=== PATIENT | male | born 1980 | race Caucasian/White ===

== ENCOUNTER 2019-02-09 09:03 | Inpatient (IN) | payer MEDICARE, MEDICAID ==
[~2019-02-09] VITALS: Ht 170.2 cm; Wt 69.2 kg
[2019-02-09] MEDS ORDERED: LORazepam 2 MG TABLET PO PRN (11:45)
[2019-02-09] MEDS ORDERED: HALOPERIDOL 5 MG TABLET PO PRN (11:45)
[2019-02-09] MEDS ORDERED: ZOLPIDEM TARTRATE 10 MG TABLET PO PRN (11:45)
[2019-02-09 12:14] VITALS: BP 126/70
[2019-02-09 13:06] VITALS: BP 102/65
[2019-02-09] MEDS ORDERED: OLAN10TA3 PO (13:14)
[2019-02-09 16:00] VITALS: BP 109/66
[2019-02-09] MEDS ORDERED: MAG HYDROX/AL HYDROX/SIMETH ES 30 ML SUSPENSION UDCUP PO PRN (16:00)
[2019-02-09] MEDS ORDERED: ACETAMINOPHEN 325 MG TABLET PO PRN (16:00)
[2019-02-09] MEDS ORDERED: LOPERAMIDE HCL 2 MG CAPSULE PO PRN (16:00)
[2019-02-09] MEDS ORDERED: ALBUTEROL SULFATE HFA 90 MCG/PUFF 8 GM INHALER IH PRN (16:00)
[2019-02-09] MEDS ORDERED: DOCUSATE SODIUM 100 MG CAPSULE PO PRN (16:00)
[2019-02-09] MEDS ORDERED: ONDANSETRON HCL 4 MG TABLET PO PRN (16:00)
[2019-02-09] MEDS ORDERED: NICOTINE 14 MG/24 HOUR PATCH TD PRN (16:00)
[2019-02-09] MEDS ORDERED: IBUPROFEN 400 MG TABLET PO PRN (16:00)
[2019-02-09] MEDS ORDERED: MAGNESIUM HYDROXIDE SUSPENSION 30 ML UDCUP PO PRN (16:00)
[2019-02-09] MEDS ORDERED: GuaiFENesin/D-METHORPHAN [SUGAR-FREE] 200-20MG/10 ML SYRUP UDCUP PO PRN (16:00)
[2019-02-09] MEDS ORDERED: CloNIDine HCL 0.1 MG TABLET PO PRN (16:00)
[2019-02-09] MEDS ORDERED: PETROLATUM,WHITE 28 GM JELLY TP PRN (16:00)
[2019-02-09] MEDS: BACITRACIN 28.4 GM OINTMENT TP SCH (17:00)
[2019-02-10 06:35] VITALS: BP 106/62
[2019-02-10 08:11] LABS: BASOPHILS % (AUTO) 2.2 % (0.0-2.0); EOSINOPHILS % (AUTO) 7.6 % (1.0-6.0); HEMATOCRIT 43.5 % (41-53); HEMOGLOBIN 14.6 g/dL (13.5-17.5); LYMPHOCYTES # (AUTO) 1.6 K/uL (1.0-4.8); LYMPHOCYTES % (AUTO) 31.4 % (22.0-44.0); MEAN CORPUSCULAR HEMOGLOBIN 31.5 pg (26.0-34.0); MEAN CORPUSCULAR HGB CONC 33.6 G/dL (31.0-37.0); MEAN CORPUSCULAR VOLUME 94 fL (80-100); MONOCYTES # (AUTO) 0.3 K/uL (0.1-1.0); MONOCYTES % (AUTO) 6.2 % (2.0-9.0); NEUTROPHILS # (AUTO) 2.6 K/uL (1.8-7.7); NEUTROPHILS % (AUTO) 52.6 % (40.0-70.0); PLATELET COUNT (AUTO) 199 K/uL (150-450); RED BLOOD CELL COUNT(AUTO) 4.64 MIL/uL (4.50-5.90); RED CELL DISTRIBUTION WIDTH 13.7 % (11.5-14.5)
[2019-02-10 08:38] LABS: ALANINE AMINOTRANSFERASE 13 U/L (12-78); ALBUMIN 3.4 g/dL (3.4-5.0); ALKALINE PHOSPHATASE 54 U/L (46-116); ANION GAP 5 mmol/L (8-16); ASPARTATE AMINOTRANSFERASE 12 U/L (15-37); BILIRUBIN,TOTAL 0.5 mg/dL (0.1-1.0); CALCIUM, TOTAL 9.1 mg/dL (8.8-10.5); CARBON DIOXIDE 29 mmol/L (22-29); CHLORIDE 107 mmol/L (98-107); CHOL/HDL RATIO 3.1 (4.2-7.3); CHOLESTEROL 127 mg/dL (131-200); CREATININE 0.91 mg/dL (0.60-1.30); FREE T4 (FREE THYROXINE) 0.86 ng/dL (0.76-1.46); GLOMERULAR FILTR. RATE CALC > 60 mL/min (>60); GLUCOSE,RANDOM 98 mg/dL (70-110); HDL CHOLESTEROL 41 mg/dL (40-60); LDL CHOL (CALC.) 77 mg/dL (0-130); POTASSIUM 4.3 mmol/L (3.5-5.1); SODIUM SERUM 141 mmol/L (136-145); THYROID STIMULATING HORMONE 1.24 uIU/mL (0.36-3.74); TOTAL PROTEIN, SERUM 6.6 g/dL (6.4-8.2); TRIGLYCERIDES 47 mg/dL (15-150); UREA NITROGEN, BLOOD 19 mg/dL (7-18)
[2019-02-10] MEDS: BACITRACIN 28.4 GM OINTMENT TP SCH ×2 (09:55→16:39)
[2019-02-10 16:16] VITALS: BP 112/68
[2019-02-11 02:27] VITALS: BP 100/65
[2019-02-11 08:25] VITALS: BP 107/61
[2019-02-11] MEDS: BACITRACIN 28.4 GM OINTMENT TP SCH (09:05)
== END 2019-02-11 15:08 | disposition home or self-care (01) | DRG 885 ==
LOC: B3A 13:32
PROVIDERS: ATTEND Psychiatry & Neurology Psychiatry
DX: F25.9 Schizoaffective disorder, unspecified (principal); K59.00 Constipation, unspecified; Z59.0 Homelessness
CPT/HCPCS: 83036; 84439; 84443